=== PATIENT | female | born 1975 | race African-American/Black ===

== ENCOUNTER 2016-08-17 12:42 | Emergency (ER) | payer MEDICARE, MEDICAID ==
--- NOTE | 2016-08-27 09:23 | ER ---
ADMIT: 08/17/2016 RM/LOC: [facility] MR#: [id number] [address] [id number] ERIKA RAYA [address] [place] [address] Emergency Room Report SEX: F AGE: 41 : 1975 DATE: 08/17/2016 HISTORY OF PRESENT ILLNESS: Erika is a black female, presents to the emergency room complaining of chest wall pain waxing and waning. She says she works at [employer], and the pressure she has is pretty high close to the clavicle, center of the clavicle, and in her chest. Denies any nausea or vomiting. REVIEW OF SYSTEMS: Otherwise negative. PAST MEDICAL HISTORY: Asthma attack. She has had uterine ablation and tubal ligation. ALLERGIES: SHE IS ALLERGIC TO PENICILLIN. MEDICATIONS: 1. Ventolin. 2. Alprazolam. 3. Antidepressants. 4. Diet pills. 5. Ferrous sulfate occasionally. Her boyfriend at bedside states that the reason why she is feeling the way she is because she is being on some diet pills that usually in the past have caused her to get some chest discomfort. PHYSICAL EXAMINATION: VITAL SIGNS: Blood pressure is 141/101, heart rate is 80, respirations 18, temp 97.5, and O2 sats 96%. GENERAL: She is mildly anxious. HEENT: Normal inspection. NECK: Supple. She does have some wheezes throughout. CVS: Regular rate and rhythm. Rest of the physical examination is within normal limits. DIAGNOSTIC DATA: We did 2 x-rays, and an EKG was done. EKG was interpreted by Dr. Childers, normal sinus rhythm, and the heart rate 76, no ST changes. Chest x-ray, no significant interval changes, no acute findings, cardiac ADMIT: 08/17/2016 RM/LOC: ER [facility] MR#: [id number] [id number] [place], [place] [id number] ERIKA RAYA [address] [place] [address] Emergency Room Report SEX: F AGE: 41 : 1975 silhouettes and pulmonary vascular are within normal limits, no infiltrates. She was given [place] for pain control. CLINICAL IMPRESSION: Chest wall pain secondary to asthma attack. Please note, she had had a couple of asthma attacks in the past, and she felt like she works so hard that she is tender to palpation on the chest. She has medication at home in the form of her albuterol inhaler and apparently at that time did not have it with her, so she really suffered until she was able to get to a place where she could get her inhaler. At this point, she is not hypoxic, seems to be in no acute distress. She essentially wanted to get checkup for work, and the instructions here are continue home medications, activity as tolerated, increase fluids, and follow up with Dr. Avalos. EMRE Hoskins / Ebenezer Childers MD / calvin JOB #: [id number] CC: Ebenezer Childers MD, Attending Physician Rola Avalos MD, Family Physician
== END 2016-08-17 14:14 | disposition home or self-care (01) ==
LOC: ER 12:42
DX: R07.89 Other chest pain (principal); J45.909 Unspecified asthma, uncomplicated; F32.9 Major depressive disorder, single episode, unspecified; Z98.51 Tubal ligation status; Z88.0 Allergy status to penicillin; Z79.899 Other long term (current) drug therapy